=== PATIENT | male | born 1975 | race Caucasian/White ===

== ENCOUNTER 2016-11-09 12:07 | Emergency (ER) | payer BC ==
[~2016-11-09] VITALS: Ht 177.8 cm; Wt 67.1 kg
[2016-11-09 12:44] LABS: CALCIUM 9.3 mg/dL (8.5-10.1); CREATININE 1.3 mg/dL (0.7-1.3); GFR 61.1; POTASSIUM 4.1 mmol/L (3.5-5.1)
[2016-11-09] MEDS ORDERED: KETOROLAC TROMETHAMINE 30 MG/ML INJ. IV ONE (12:45)
--- NOTE | 2016-11-09 13:00 | PHYS DOC ---
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 States he has some dark colored urine last night, but it is clearing this morning. The pain is achy. He denies fever or chills, nausea or vomiting, constipation, diarrhea, dark or bloody stools, chest pain, dyspnea, cough, rash. No trauma Review of Systems Review of Systems Constitutional: Denies fever or chills [] Eyes: Denies change in visual acuity, redness, or eye pain [] HENT: Denies nasal congestion or sore throat [] Respiratory: Denies cough or shortness of breath [] Cardiovascular: No additional information not addressed in HPI [] GI: Denies nausea, vomiting, bloody stools or diarrhea [] : Denies dysuria [] Musculoskeletal: Denies joint pain [] Integument: Denies rash or skin lesions [] Neurologic: Denies headache, focal weakness or sensory changes [] Endocrine: Denies polyuria or polydipsia [] Current Medications Current Medications Current Medications Medications (Trade) Dose Ordered Sig/Lloyd Start Time Stop Time Status Last Admin Dose Admin Ketorolac Tromethamine (Toradol) 10 mg 1X ONCE 11/09/16 12:45 11/09/16 12:46 DC 11/09/16 12:34 10 MG Allergies Allergies Allergies Coded Allergies Type Severity Reaction Last Updated Verified No Known Drug Allergies 11/09/16 No Physical Exam Physical Exam Constitutional: Well developed, well nourished, no acute distress, non-toxic appearance. [] HENT: Normocephalic, atraumatic, bilateral external ears normal, oropharynx moist, nose normal. [] Eyes: PERRLA, EOMI. [] Neck: Normal range of motion, supple. [] Cardiovascular:Heart rate regular rhythm [] Lungs & Thorax: Bilateral breath sounds clear to auscultation [] Abdomen: Bowel sounds normal, soft, no tenderness. [] Skin: Warm, dry, no erythema, no rash. [] Back: No tenderness, no right CVA tenderness. Has slight left CVA tenderness. No visual or palpable abnormality [] Extremities: No tenderness, ROM intact, no edema. [] Neurologic: Alert and oriented X 3, normal motor function, normal sensory function, no focal deficits noted. [] Psychologic: Affect normal, judgement normal, mood normal. [] Current Patient Data Vital Signs Vital Signs Date Time Temp Pulse Resp B/P (MAP) Pulse Ox O2 Delivery O2 Flow Rate FiO2 11/09/16 13:49 58 14 112/67 (82) 98 Room Air 11/09/16 12:09 98.0 98.0 Lab Values Laboratory Tests Test 11/09/16 12:10 11/09/16 13:19 Sodium Level 141 mmol/L (136-145) Potassium Level 4.1 mmol/L (3.5-5.1) Chloride Level 103 mmol/L (98-107) Carbon Dioxide Level 33 mmol/L (21-32) H Anion Gap 5 (6-14) L Blood Urea Nitrogen 13 mg/dL (8-26) Creatinine 1.3 mg/dL (0.7-1.3) Estimated GFR (Cockcroft-Gault) 61.1 Glucose Level 92 mg/dL (70-99) Calcium Level 9.3 mg/dL (8.5-10.1) Urine Color Yellow Urine Clarity Cloudy Urine pH 6.0 Urine Specific [place] 1.025 Urine Protein 30 mg/dL (NEG-TRACE) Urine Glucose (UA) Negative mg/dL (NEG) Urine Ketones (Stick) Negative mg/dL (NEG) Urine Blood Large (NEG) Urine Nitrite Negative (NEG) Urine Bilirubin Negative (NEG) Urine Urobilinogen Dipstick 0.2 mg/dL (0.2 mg/dL) Urine Leukocyte Esterase Small (NEG) Urine RBC Tntc /HPF (0-2) Urine WBC 1-4 /HPF (0-4) Urine Squamous Epithelial Cells Occ /LPF Urine Bacteria Few /HPF (0-FEW) Urine Mucus Slight /LPF Laboratory Tests 11/09/16 12:10 Radiology/Procedures Radiology/Procedures CT abdomen and pelvis without contrast IMPRESSION: 4 mm calculus distal left ureter, several centimeters proximal to the UVJ, with associated moderate obstructive uropathy Intrarenal minute bilateral calculi additionally noted. DICTATED and SIGNED BY: JOSE M STRICKLAND MD DATE: 11/09/16 1137 Course & Med Decision Making Course & Med Decision Making Pertinent Labs and Imaging studies reviewed. (See chart for details) Imaging as above significant for urolithiasis. Laboratory evaluation is largely unremarkable otherwise. His symptoms are controlled at this time and he would like trial of outpatient therapy. Provided urine strainer. Discussed symptomatic care. Return precautions given. He understands and agrees with plan. Dragon Disclaimer Dragon Disclaimer This electronic medical record was generated, in whole or in part, using a voice recognition dictation system. Departure Departure Impression: Primary Impression: Ureteral colic Disposition: HOME, SELF-CARE Condition: STABLE Referrals: NO PCP (PCP) Patient Instructions: Kidney Stones, [id number] Additional Instructions: Strain your urine to catch the stone. Take the stone to your doctor for analysis. Take Flomax to help the stone pass. Take Tylenol or ibuprofen as needed for moderate pain. Take hydrocodone as needed for severe pain. Do not drink, drive or operate heavy machinery after taking hydrocodone as it may make you sleepy. Follow-up with your primary care doctor within one week. Please call for appointment. Return for any concerns. Scripts Hydrocodone Bit/Acetaminophen (HYDROCODONE-APAP 5-325 ) 1 Each Tablet 1-2 TAB PO PRN Q6HRS Y for PAIN, #14 TAB 0 Refills Prov: Stacia LARA MD 11/09/16 Tamsulosin Hcl (FLOMAX) 0.4 Mg Cap.er.24h 1 CAP PO DAILY for 7 Days, #7 CAP 0 Refills Prov: Stacia LARA MD 11/09/16 Stacia LARA MD Nov 09, 2016 13:00
[2016-11-09 13:28] LABS: BILIRUBIN,URINE NEGATIVE (NEG); GLUCOSE,URINE NEGATIVE (NEG); NITRITE,URINE NEGATIVE (NEG); PROTEIN,URINE 30 mg/dL (NEG-TRACE); UROBILINOGEN,URINE 0.2 mg/dL (0.2 mg/dL)
--- NOTE | 2016-11-09 13:47 | RAD ---
Indication left flank pain. Blood in the urine. Axial images of the abdomen and pelvis were obtained. Examination was tailored for the detection of renal and/or ureteral calculi. No prior imaging of the abdomen or pelvis is available. The lung bases are clear. There is a low-density 5 mm mass in the right lobe of the liver most compatible with a small incidental cyst. A definite significant finding in the liver is not seen. The spleen appears unremarkable and the gallbladder appears grossly normal. No pancreatic abnormality is seen. No adrenal masses are seen. There are minute bilateral renal calculi. On the left there is hydronephrosis and hydroureter to the level of a 4 mm calculus in the distal left ureter, overlying the sacrum, several centimeters proximal to the UVJ. No additional finding is seen in the abdomen or pelvis. IMPRESSION: 4 mm calculus distal left ureter, several centimeters proximal to the UVJ, with associated moderate obstructive uropathy Intrarenal minute bilateral calculi additionally noted. PQRS Compliance Statement: One or more of the following individualized dose reduction techniques were utilized for this examination: 1. Automated exposure control 2. Adjustment of the mA and/or kV according to patient size 3. Use of iterative reconstruction technique
[2016-11-09 13:49] VITALS: BP 112/67
[2016-11-09 13:52] LABS: BACTERIA,URINE FEW /HPF (0-FEW); RBC,URINE TNTC /HPF (0-2); SQUAMOUS EPITHELIAL CELL,UR OCC /LPF
[2016-11-09] MEDS ORDERED: TAMS0.4C97 PO (13:59)
[2016-11-09] MEDS ORDERED: HYDR-2758 PO (13:59)
[2016-11-09] MEDS ORDERED: ONDANSETRON PF 4 MG/2 ML VIAL. IV ONE (14:15)
[2016-11-09] MEDS ORDERED: fentaNYL PF VIAL 100 MCG/2 ML VIAL IV ONE (14:15)
== END 2016-11-09 14:31 | disposition home or self-care (01) ==
LOC: ER 12:07
DX: N23 Unspecified renal colic (principal); H54.41 Blindness, right eye, normal vision left eye; Z87.442 Personal history of urinary calculi
CPT/HCPCS: 36415; 74176; 80048; 81001; 87086; 96374; 96375; 99285; J1885; J2405; J3010

== ENCOUNTER 2016-11-16 15:36 | Emergency (ER) | payer BC ==
[~2016-11-16] VITALS: Ht 177.8 cm; Wt 67.1 kg
[~2016-11-16 15:36] MED LIST: HYDR-2758 PO; TAMS0.4C97 PO
[2016-11-16 16:15] LABS: BILIRUBIN,URINE NEGATIVE (NEG); GLUCOSE,URINE NEGATIVE (NEG); NITRITE,URINE NEGATIVE (NEG); PROTEIN,URINE NEGATIVE (NEG-TRACE); UROBILINOGEN,URINE 0.2 mg/dL (0.2 mg/dL)
[2016-11-16 16:24] LABS: BACTERIA,URINE 0 /HPF (0-FEW); RBC,URINE 0 /HPF (0-2)
--- NOTE | 2016-11-16 17:39 | ED.ADGEN ---
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 Patient reports pain with urination this morning. Pain has currently resolved. Denies hematuria , and see and frequency. No fever chills or sweats. No other acute symptoms or complaints. Review of Systems Review of Systems ROS as per [facility] Allergies Allergies Allergies Coded Allergies Type Severity Reaction Last Updated Verified No Known Drug Allergies 11/09/16 No Physical Exam Physical Exam Constitutional: Well developed, well nourished, no acute distress. HENT: Normocephalic, atraumatic, bilateral external ears normal, oropharynx moist, no oral exudates, nose normal. Eyes: PERRLA, EOMI, conjunctiva normal. Neck: Normal range of motion, no tenderness, supple. Cardiovascular:Heart rate regular rhythm, no murmur. Lungs & Thorax: Bilateral breath sounds clear to auscultation. Abdomen: Bowel sounds normal, soft, left lower quadrant tenderness. Skin: Warm, dry. Back: No tenderness, no CVA tenderness. Extremities: No tenderness. Neurologic: Alert and oriented X 3, normal motor function, normal sensory function, no focal deficits noted. Psychologic: Affect normal, judgement normal, mood normal. Current Patient Data Vital Signs Vital Signs Date Time Temp Pulse Resp B/P (MAP) Pulse Ox O2 Delivery O2 Flow Rate FiO2 11/16/16 17:30 62 16 104/68 (80) 99 Room Air 11/16/16 15:48 98.9 98.9 Lab Values Laboratory Tests Test 11/16/16 15:18 Urine Collection Type Unknown Urine Color Yellow Urine Clarity Clear Urine pH 6.0 Urine Specific [place] <=1.005 Urine Protein Negative mg/dL (NEG-TRACE) Urine Glucose (UA) Negative mg/dL (NEG) Urine Ketones (Stick) Negative mg/dL (NEG) Urine Blood Negative (NEG) Urine Nitrite Negative (NEG) Urine Bilirubin Negative (NEG) Urine Urobilinogen Dipstick 0.2 mg/dL (0.2 mg/dL) Urine Leukocyte Esterase Small (NEG) Urine RBC 0 /HPF (0-2) Urine WBC 1-4 /HPF (0-4) Urine Bacteria 0 /HPF (0-FEW) EKG EKG [] Radiology/Procedures Radiology/Procedures [XR KUB: Probable to left ureteral stone identified] Course & Med Decision Making Course & Med Decision Making Pertinent Labs and Imaging studies reviewed. (See chart for details) [Asymptomatic in the ED with possible small trace urinary tract infection. Patient prescribed antibiotics, refill pain medication with instructions follow- up with urology.] Dragon Disclaimer Dragon Disclaimer This electronic medical record was generated, in whole or in part, using a voice recognition dictation system. KRISTEN CISSE DO Nov 16, 2016 17:39
[2016-11-16 19:03] VITALS: BP 106/76
--- NOTE | 2016-11-17 07:30 | RAD ---
Indication: Left ureteral stone with increasing left-sided pain. Time of exam 1724 hours. Correlation is made with CT study from 11/09/2016. Recent CT demonstrated a stone in the distal left ureter. There continues to be a calcific density noted in the left hemipelvis, suggestive of a distal left ureteric calculus. This does appear to be progressed since recent CT and likely near the UVJ. No other ureteral calculi are identified. There is a tiny nonobstructing calculus in the mid right kidney. The bowel gas pattern is unremarkable. Impression: Probable distal left ureteric calculus in the region of the left UVJ.
== END 2016-11-16 19:05 | disposition home or self-care (01) ==
LOC: ER 15:36
DX: R10.32 Left lower quadrant pain (principal); R30.9 Painful micturition, unspecified; Z87.442 Personal history of urinary calculi
CPT/HCPCS: 74000; 81001; 87086; 99285-25

== ENCOUNTER 2018-10-29 22:40 | Emergency (ER) | payer BC ==
[~2018-10-29] VITALS: Ht 177.8 cm; Wt 68.0 kg
[~2018-10-29 22:40] MED LIST changes: -HYDR-2758 PO; +HYDR-2761 PO
[2018-10-29 22:49] VITALS: BP 100/64
[2018-10-30] MEDS ORDERED: SMZ/TMP 800/160MG TABLET. PO ONE
[2018-10-30] MEDS ORDERED: LIDOCAINE 1% PF 2 ML VIAL. INJ ONE
[2018-10-30] MEDS ORDERED: cefTRIAXone IM 1 GM VIAL IM ONE
[2018-10-30] MEDS ORDERED: CEPH500C PO (00:14)
[2018-10-30] MEDS ORDERED: SULF1TAB24 PO (00:14)
--- NOTE | 2018-10-30 00:14 | PHYS DOC ---
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 Denies any fever. Denies any nausea vomiting. Review of Systems Review of Systems Constitutional: Denies fever or chills [] Musculoskeletal: Denies back pain or joint pain [] Integument: Right lateral forearm with slight area of induration approximately 2 x 2 centimeters with surrounding cellulitis, warmth, no fluctuance to this region, there is a black puncture wound in the center of this area. Neurovascular exam is intact to the right forearm. Neurologic: Denies headache, focal weakness or sensory changes [] Endocrine: Denies polyuria or polydipsia [] All other systems were reviewed and found to be within normal limits, except as documented in this note. Current Medications Current Medications Current Medications Medications (Trade) Dose Ordered Sig/Lloyd Start Time Stop Time Status Last Admin Dose Admin Ceftriaxone Sodium (Rocephin Im) 1 gm 1X ONCE 10/30/18 00:00 10/30/18 00:01 DC Lidocaine HCl (Xylocaine-Mpf 1% 2ml Vial) 2 ml 1X ONCE 10/30/18 00:00 10/30/18 00:01 DC Trimethoprim/ Sulfamethoxazole (Bactrim Ds) 1 tab 1X ONCE 10/30/18 00:00 10/30/18 00:01 DC Allergies Allergies Allergies Coded Allergies Type Severity Reaction Last Updated Verified No Known Drug Allergies 11/09/16 No Physical Exam Physical Exam Constitutional: Well developed, well nourished, no acute distress, non-toxic appearance. [] HENT: Normocephalic, atraumatic, bilateral external ears normal, oropharynx moist, no oral exudates, nose normal. [] Eyes: PERRLA, EOMI, conjunctiva normal, no discharge. [] Neck: Normal range of motion, no tenderness, supple, no stridor. [] Cardiovascular:Heart rate regular rhythm, no murmur [] Lungs & Thorax: Bilateral breath sounds clear to auscultation [] Abdomen: Bowel sounds normal, soft, no tenderness, no masses, no pulsatile masses. [] Skin: Warm, dry, no erythema, no rash. [] Back: No tenderness, no CVA tenderness. [] Extremities: No tenderness, no cyanosis, no clubbing, ROM intact, no edema. [] Neurologic: Alert and oriented X 3, normal motor function, normal sensory function, no focal deficits noted. [] Psychologic: Affect normal, judgement normal, mood normal. [] Current Patient Data Vital Signs Vital Signs Date Time Temp Pulse Resp B/P (MAP) Pulse Ox O2 Delivery O2 Flow Rate FiO2 10/29/18 22:49 97.9 74 16 100/64 (76) 99 Room Air 97.9 EKG EKG [] Radiology/Procedures Radiology/Procedures [] Course & Med Decision Making Course & Med Decision Making Pertinent Labs and Imaging studies reviewed. (See chart for details) This is a 43-year-old male patient presenting to the ED today with an insect bite/cellulitis to the right forearm. Tetanus up-to-date. Given Rocephin and B actrim by mouth in the ED. Discharged with Bactrim and cephalexin. Follow-up with primary care doctor in the course of next week. Warm compresses recommended to the area. Return precautions provided. Dragon Disclaimer Dragon Disclaimer This electronic medical record was generated, in whole or in part, using a voice recognition dictation system. Departure Departure Impression: Primary Impression: Cellulitis of right forearm Disposition: 01 HOME, SELF-CARE Condition: STABLE Referrals: NO PCP (PCP) Follow-up with your doctor in 1-2 weeks Patient Instructions: Cellulitis, [id number] Additional Instructions: You were evaluated in the emergency room for infection on the right forearm. Apply warm compresses to the area 2 or 3 times a day. Keep the area clean and dry. Take the prescribed medications as ordered until completed. Follow-up with primary care doctor in 1-2 weeks. Scripts Sulfamethoxazole/Trimethoprim (BACTRIM DS TABLET) 1 Each Tablet 1 TAB PO BID, #20 TAB Prov: HARRIS PEREZ APRN 10/30/18 Cephalexin (CEPHALEXIN) 500 Mg Capsule 1 CAP PO QID, #40 CAP Prov: HARRIS PEREZ HEAD FILTER [employer]ENDER HELPER 10/30/18 HARRIS PEREZ APRN Oct 30, 2018 00:14
== END 2018-10-30 00:30 | disposition home or self-care (01) ==
LOC: ER 22:40
DX: L03.113 Cellulitis of right upper limb (principal); Z87.442 Personal history of urinary calculi; S50.861A Insect bite (nonvenomous) of right forearm, initial encounter; W57.XXXA Bitten or stung by nonvenomous insect and other nonvenomous arthropods, initial encounter; Y93.89 Activity, other specified; Y92.89 Other specified places as the place of occurrence of the external cause; Y99.8 Other external cause status
CPT/HCPCS: 96372; 99283; J0696